=== PATIENT | male | born 1995 | race Caucasian/White ===

== ENCOUNTER 2017-07-30 01:23 | Emergency (ER) | payer OTHER ==
[2017-07-30 01:30] VITALS: BP 141/78
--- NOTE | 2017-07-30 02:29 | EDPHY ---
H & P Stated Complaint: dropped a glass and lac to left lower leg Time Seen by Provider: 07/30/17 01:30 HPI/ROS: HPI: The patient presents with a laceration to his left anterior murillo which occurred about 30 min prior to arrival. He was drinking alcohol and jungle in glass bottles when he dropped a bottle which then shattered and glass fragment cut him in the leg. Bleeding is controlled. Patient has no numbness or tingling. He is able to walk without difficulty. REVIEW OF SYSTEMS Constitutional: No fever, no chills. Eyes: No discharge. ENT: No sore throat. Cardiovascular: No chest pain, no palpitations. Respiratory: No cough, no shortness of breath. Gastrointestinal: No abdominal pain, no vomiting. Genitourinary: No hematuria. Musculoskeletal: No back pain. Skin: No rashes. Neurological: No headache. 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 [employer] General Appearance: Alert, obviously intoxicated Head: Atraumatic Respiratory: Breathing comfortably Abdomen: Abdomen is soft and non-tender, pelvis stable Skin: There is a W shaped laceration in the proximal 1/3 of his anterior murillo which is gaping, with exposed fatty tissue, there does not appear to be any tendon involvement Extremities: Non-tender, full range of motion Neurological: A&Ox3, GCS=15,normal motor function with 5/5 strength in all 4 extremities, normal sensory exam Source: Patient Exam Limitations: Intoxication - Personal History Current Tetanus/Diphtheria Vaccine: Yes Current Tetanus Diphtheria and Acellular Pertussis (TDAP): Yes - Medical/Surgical History Hx Asthma: No Hx Chronic Respiratory Disease: No Hx Diabetes: No Hx Cardiac Disease: No Hx Renal Disease: No Hx Cirrhosis: No Hx Alcoholism: No Hx HIV/AIDS: No Hx Splenectomy or Spleen Trauma: No Other PMH: neg - Social History Smoking Status: Current some day smoker Constitutional: Initial Vital Signs Temperature (C) 36.4 C 07/30/17 01:28 Heart Rate 102 H 07/30/17 01:28 Respiratory Rate 18 07/30/17 01:28 Blood Pressure 141/78 H 07/30/17 01:28 O2 Sat (%) 97 07/30/17 01:28 O2 Delivery Mode Room Air Allergies/Adverse Reactions: No Known Allergies Allergy (Unverified 07/30/17 01:30) Home Medications: Medication Instructions Recorded Albuterol [Ventolin Hfa Inhaler] 07/30/17 Medical Decision Making - Diagnostics Imaging Results: X-ray tib-fib left two view shows no fracture, no foreign body, interpreted by me, radiology interpretation is pending. Imaging: I viewed and interpreted images myself Procedures: LACERATION REPAIR Procedure: Laceration repair. Verbal consent was obtained from the patient. The W shaped 6 cm laceration on the left anterior murillo was anesthetized using bupivacaine 0.5% with epinephrine. The wound was scrubbed, draped and explored to its base with a gloved finger. There were no deep structures involved. No tendon injury was identified. . The wound was repaired with combination of horizontal mattress and simple interrupted sutures of 4-0 nylon on the skin surface with for deep sutures of 4-0 nylon. The wound repair was complex. The procedure was performed by myself. Differential Diagnosis: This is a 21-year-old male who presents with left leg laceration, drinking alcohol, jungle Ng bottles and 1 shattered and hit his left murillo. He is neurovascularly intact with no tendon injury on exam. X-ray was performed showing no foreign body. Wound was anesthetized and irrigated and then repaired by me. He was discharged home in a taxi. I have counseled him on wound care. Departure - Departure Disposition: Home, Routine, Self-Care Clinical Impression: Leg laceration Qualifiers: Encounter type: initial encounter Laterality: left Qualified Code(s): S81.812A - Laceration without foreign body, left lower leg, initial encounter Alcohol intoxication Qualifiers: Complication of substance-induced condition: uncomplicated Qualified Code(s): F10.920 - Alcohol use, unspecified with intoxication, uncomplicated Condition: Good Instructions: Care For Your Stitches (ED), Laceration (ED) Additional Instructions: Your stitches should be removed in 10 days. You can come back to the emergency department for this or go to [facility]. Please keep the wound covered. You should put antibiotic ointment on top of it and then rapid. Please leave the dressing that we have placed on her leg in place for 24 hr. Then, it is okay to get it wet in the shower or bath though avoid swimming. Referrals: [facility] [Clinic] - As per Instructions
== END 2017-07-30 02:42 | disposition home or self-care (01) ==
PROC: 0HQLXZZ Repair Left Lower Leg Skin, External Approach (ICD-10-PCS; principal; 2017-07-30)
DX: S81.812A Laceration without foreign body, left lower leg, initial encounter (principal); F10.920 Alcohol use, unspecified with intoxication, uncomplicated; F17.200 Nicotine dependence, unspecified, uncomplicated; W25.XXXA Contact with sharp glass, initial encounter; Y99.8 Other external cause status; Y93.89 Activity, other specified